=== PATIENT | female | born 1960 | race African-American/Black ===

== ENCOUNTER 2017-08-19 14:23 | Inpatient (IN) | payer MEDICAID, OTHER ==
[~2017-08-19] VITALS: Ht 160 cm; Wt 151.5 kg
[2017-08-19] MEDS ORDERED: FLUT1DIS3 IH (14:30)
[2017-08-19] MEDS ORDERED: TRAM50TA3 PO (14:30)
[2017-08-19] MEDS ORDERED: ALBU6.7H IH (14:30)
[2017-08-19] MEDS ORDERED: LISI-604 PO (14:30)
[2017-08-19] MEDS ORDERED: SODIUM CHLORIDE 0.9% 1,000 ML IV ONE (15:42)
[2017-08-19] MEDS ORDERED: ALBUTEROL (0.083%) 2.5MG/3ML NEB HHN STA (15:42)
[2017-08-19] MEDS ORDERED: KETOROLAC 30MG/ML VIAL IV STA (15:42)
[2017-08-19] MEDS ORDERED: IPRATROPIUM BROMIDE (0.02%) 0.5MG/2.5ML NEB HHN STA (15:42)
[2017-08-19] MEDS ORDERED: METHYLPREDNISOLONE SOD SUCC 125 MG/2 ML VIAL IV STA (15:42)
[2017-08-19 16:34] LABS: BASOPHILS % 0.7 % (0.0-2.0); EOSINOPHILS % 0.9 % (0.0-5.0); HEMATOCRIT. 35.3 % (36.0-48.0); LYMPHOCYTES % 20.5 % (20.0-50.0); MEAN CORPUSCULAR HEMOGLOBIN 22.7 pg (28.0-32.0); MEAN CORPUSCULAR VOLUME 72.9 fL (81.0-99.0); MEAN PLATELET VOLUME 9.5 fl (7.4-10.4); MONOCYTES % 5.5 % (2.0-8.0); NEUTROPHILS % 72.4 % (40.0-76.0); PLATELET 259 x1000/uL (130-400); RED BLOOD CELL COUNT 4.85 mill/uL (4.2-5.4); RED CELL DISTRIBUTION WIDTH 18.2 % (11.6-14.6)
[2017-08-19 16:48] LABS: CARBON DIOXIDE 33 mEq/L (21-32); CHLORIDE 105 mEq/L (98-107); TROPONIN I < 0.02 ng/mL (0.00-0.04)
[2017-08-19] MEDS ORDERED: CLONIDINE 0.2MG TABLET PO ONE (18:15)
[2017-08-19] MEDS ORDERED: FUROSEMIDE 40MG/4ML VIAL IVP ONE (19:00)
[2017-08-19] MEDS ORDERED: DOCUSATE SODIUM 100MG CAPSULE PO PRN (19:15)
[2017-08-19] MEDS ORDERED: ENOXAPARIN 40MG/0.4ML SYR SUBCUT SCH (19:15)
[2017-08-19] MEDS ORDERED: MAGNESIUM/ALUMINUM HYDROXIDE/SIMETHICONE 30ML UDC PO PRN (19:15)
[2017-08-19] MEDS ORDERED: ONDANSETRON HCL 4MG/2ML VIAL IV PRN (19:15)
[2017-08-19] MEDS ORDERED: ACETAMINOPHEN 325MG TABLET PO PRN (19:15)
[2017-08-19] MEDS ORDERED: HYDRALAZINE HCL 10MG TABLET PO NR (21:00)
[2017-08-19 23:12] LABS: CARBON DIOXIDE 31 mEq/L (21-32); CHLORIDE 103 mEq/L (98-107); CREATINE KINASE 75 IU/L (26-192); TROPONIN I < 0.02 ng/mL (0.00-0.04)
[2017-08-19 23:13] LABS: CREATINE KINASE MB FRACTION 1.4 ng/mL (0.5-3.6)
[2017-08-19 23:55] VITALS: BP 160/65
[2017-08-20] VITALS (8 sets, daily range): BP systolic 128–198; BP diastolic 65–96
[2017-08-20] MEDS: METHYLPREDNISOLONE SOD SUCC 40 MG/ML VIAL IV SCH ×3 (00:17→21:30)
[2017-08-20] MEDS: CLONIDINE 0.1MG TABLET PO PRN ×2 (00:20→06:46)
[2017-08-20 05:51] LABS: CLARITY URINE CLEAR (CLEAR); COLOR URINE YELLOW (YELLOW); GLUCOSE URINE NEGATIVE (NEGATIVE); KETONES URINE NEGATIVE (NEGATIVE); LEUKOCYTE ESTERASE URINE NEGATIVE (NEGATIVE); NITRITE URINE NEGATIVE (NEGATIVE); OCCULT BLOOD URINE NEGATIVE (NEGATIVE); PROTEIN URINE NEGATIVE (NEGATIVE); SPECIFIC GRAVITY URINE 1.017 (1.005-1.030); UROBILINOGEN URINE 0.2 E.U./dL (0.2-1.0)
[2017-08-20 06:05] LABS: *AMPHETAMINES SCREEN URINE NEGATIVE (NEGATIVE); *BARBITURATES SCREEN URINE NEGATIVE (NEGATIVE); *BENZODIAZEPINES SCREEN URINE NEGATIVE (NEGATIVE); *COCAINE SCREEN URINE NEGATIVE (NEGATIVE); CANNABINOID URINE SCREEN NEGATIVE (NEGATIVE); METHADONE URINE SCREEN NEGATIVE (NEGATIVE); OPIATES URINE SCREEN NEGATIVE (NEGATIVE); PHENCYCLIDINE URINE SCREEN NEGATIVE (NEGATIVE)
[2017-08-20] MEDS: FUROSEMIDE 40MG/4ML VIAL IV SCH (10:08)
[2017-08-20] MEDS: LISINOPRIL 20MG TABLET PO SCH ×2 (10:08→22:03)
[2017-08-20] MEDS: ENOXAPARIN 40MG/0.4ML SYR SUBCUT SCH ×2 (10:08→22:07)
[2017-08-20 11:25] LABS: BASOPHILS % 0.1 % (0.0-2.0); HEMOGLOBIN. 11.7 g/dL (12.0-16.0); LYMPHOCYTES % 9.4 % (20.0-50.0); MEAN CORPUSCULAR HEMOGLOBIN 22.8 pg (28.0-32.0); MEAN CORPUSCULAR VOLUME 71.9 fL (81.0-99.0); MEAN PLATELET VOLUME 9.3 fl (7.4-10.4); MONOCYTES % 1.3 % (2.0-8.0); NEUTROPHILS % 89.2 % (40.0-76.0); PLATELET 281 x1000/uL (130-400); RED BLOOD CELL COUNT 5.14 mill/uL (4.2-5.4)
[2017-08-20] MEDS: IPRATROPIUM/ALBUTEROL 0.5-3(2.5)MG/3ML NEB INH PRN (12:40)
[2017-08-20] MEDS: BUDESONIDE 0.5MG/2ML NEB HHN SCH (12:40)
[2017-08-20] MEDS ORDERED: DEXTROSE 50% WATER 50ML SYRINGE IV PRN (16:45)
[2017-08-20] MEDS: BLOOD SUGAR DIAGNOSTIC STRIP TEST SCH ×2 (17:29→21:00)
[2017-08-20] MEDS: ASPIRIN 325MG EC TABLET PO SCH (17:36)
[2017-08-20] MEDS: DILTIAZEM HCL 60MG TABLET PO SCH ×2 (17:36→22:05)
[2017-08-20] MEDS: INSULIN LISPRO 100 UNITS/ML SUBCUT SCH ×2 (17:37→21:00)
[2017-08-21] VITALS: BP 127/73
[2017-08-21] MEDS: BUDESONIDE 0.5MG/2ML NEB HHN SCH ×2 (01:09→08:17)
[2017-08-21 04:00] VITALS: BP 154/82
[2017-08-21 06:48] LABS: BASOPHILS % 0.1 % (0.0-2.0); HEMATOCRIT. 36.1 % (36.0-48.0); HEMOGLOBIN. 11.3 g/dL (12.0-16.0); LYMPHOCYTES % 8.6 % (20.0-50.0); MEAN CORPUSCULAR HEMOGLOBIN 22.4 pg (28.0-32.0); MEAN CORPUSCULAR VOLUME 71.4 fL (81.0-99.0); MEAN PLATELET VOLUME 9.2 fl (7.4-10.4); MONOCYTES % 2.1 % (2.0-8.0); NEUTROPHILS % 89.2 % (40.0-76.0); PLATELET 284 x1000/uL (130-400); RED BLOOD CELL COUNT 5.05 mill/uL (4.2-5.4); RED CELL DISTRIBUTION WIDTH 17.7 % (11.6-14.6)
[2017-08-21 07:04] LABS: CARBON DIOXIDE 32 mEq/L (21-32); CHLORIDE 103 mEq/L (98-107)
[2017-08-21] MEDS: BLOOD SUGAR DIAGNOSTIC STRIP TEST SCH ×4 (07:20→21:20)
[2017-08-21] MEDS: DILTIAZEM HCL 60MG TABLET PO SCH ×3 (07:39→17:26)
[2017-08-21 08:00] VITALS: BP 198/98
[2017-08-21] MEDS: IPRATROPIUM/ALBUTEROL 0.5-3(2.5)MG/3ML NEB INH PRN (08:17)
[2017-08-21] MEDS: INSULIN LISPRO 100 UNITS/ML SUBCUT SCH ×4 (08:42→21:00)
[2017-08-21] MEDS: LISINOPRIL 20MG TABLET PO SCH ×2 (08:43→21:53)
[2017-08-21] MEDS: FUROSEMIDE 40MG/4ML VIAL IV SCH (08:43)
[2017-08-21] MEDS: METHYLPREDNISOLONE SOD SUCC 40 MG/ML VIAL IV SCH (08:43)
[2017-08-21] MEDS: ASPIRIN 325MG EC TABLET PO SCH (08:43)
[2017-08-21] MEDS: ENOXAPARIN 40MG/0.4ML SYR SUBCUT SCH ×2 (08:44→21:53)
[2017-08-21] MEDS ORDERED: DILTIAZEM HCL 5MG/ML 5ML VIAL IV PRN (11:30)
[2017-08-21 12:00] VITALS: BP 150/73
[2017-08-21] MEDS: AMIODARONE HCL 200 MG TABLET PO SCH ×2 (14:49→21:53)
[2017-08-21 16:00] VITALS: BP 154/68
[2017-08-21 19:34] VITALS: BP 125/75
[2017-08-22] VITALS: BP 152/87
[2017-08-22] MEDS: DILTIAZEM HCL 60MG TABLET PO SCH ×2 (00:36→06:05)
[2017-08-22] MEDS: IPRATROPIUM/ALBUTEROL 0.5-3(2.5)MG/3ML NEB INH PRN ×2 (01:57→07:50)
[2017-08-22] MEDS: BUDESONIDE 0.5MG/2ML NEB HHN SCH ×3 (01:57→21:00)
[2017-08-22 04:30] VITALS: BP 151/64
[2017-08-22] MEDS: AMIODARONE HCL 200 MG TABLET PO SCH ×3 (06:05→21:09)
[2017-08-22] MEDS: BLOOD SUGAR DIAGNOSTIC STRIP TEST SCH ×4 (06:05→21:10)
[2017-08-22 06:25] LABS: BASOPHILS % 0.2 % (0.0-2.0); HEMOGLOBIN. 11.5 g/dL (12.0-16.0); LYMPHOCYTES % 10.9 % (20.0-50.0); MEAN CORPUSCULAR HEMOGLOBIN 22.4 pg (28.0-32.0); MEAN CORPUSCULAR VOLUME 72.2 fL (81.0-99.0); MEAN PLATELET VOLUME 9.3 fl (7.4-10.4); NEUTROPHILS % 79.9 % (40.0-76.0); PLATELET 285 x1000/uL (130-400); RED BLOOD CELL COUNT 5.12 mill/uL (4.2-5.4); RED CELL DISTRIBUTION WIDTH 17.8 % (11.6-14.6)
[2017-08-22 07:36] LABS: CARBON DIOXIDE 34 mEq/L (21-32); CHLORIDE 101 mEq/L (98-107)
[2017-08-22] MEDS: INSULIN LISPRO 100 UNITS/ML SUBCUT SCH ×4 (07:50→21:00)
[2017-08-22 07:59] VITALS: BP 172/89
[2017-08-22] MEDS ORDERED: PREDNISONE 20MG TABLET PO SCH (09:00)
[2017-08-22] MEDS: FUROSEMIDE 40MG/4ML VIAL IV SCH (10:41)
[2017-08-22] MEDS: LISINOPRIL 20MG TABLET PO SCH ×2 (10:42→21:09)
[2017-08-22] MEDS: ENOXAPARIN 40MG/0.4ML SYR SUBCUT SCH ×2 (10:43→21:10)
[2017-08-22] MEDS: ASPIRIN 325MG EC TABLET PO SCH (10:44)
[2017-08-22 11:47] VITALS: BP 115/68
[2017-08-22 15:58] VITALS: BP 136/78
[2017-08-22] MEDS: DILTIAZEM HCL 90MG TABLET PO SCH (18:41)
[2017-08-22 20:00] VITALS: BP 121/56
[2017-08-22] MEDS: TRAMADOL 50MG TABLET PO PRN (22:38)
[2017-08-23] VITALS: BP 148/79
[2017-08-23] MEDS: DILTIAZEM HCL 90MG TABLET PO SCH ×2 (00:37→06:34)
[2017-08-23 04:00] VITALS: BP 131/78
[2017-08-23 06:17] LABS: BASOPHILS % 0.2 % (0.0-2.0); EOSINOPHILS % 0.7 % (0.0-5.0); HEMATOCRIT. 37.2 % (36.0-48.0); HEMOGLOBIN. 11.5 g/dL (12.0-16.0); LYMPHOCYTES % 32.7 % (20.0-50.0); MEAN CORPUSCULAR HEMOGLOBIN 22.2 pg (28.0-32.0); MEAN CORPUSCULAR VOLUME 71.7 fL (81.0-99.0); MEAN PLATELET VOLUME 8.9 fl (7.4-10.4); MONOCYTES % 8.6 % (2.0-8.0); NEUTROPHILS % 57.8 % (40.0-76.0); PLATELET 293 x1000/uL (130-400); RED BLOOD CELL COUNT 5.19 mill/uL (4.2-5.4); RED CELL DISTRIBUTION WIDTH 17.6 % (11.6-14.6)
[2017-08-23 06:29] LABS: CARBON DIOXIDE 33 mEq/L (21-32); CHLORIDE 98 mEq/L (98-107)
[2017-08-23] MEDS: AMIODARONE HCL 200 MG TABLET PO SCH ×3 (06:34→22:34)
[2017-08-23] MEDS: BLOOD SUGAR DIAGNOSTIC STRIP TEST SCH ×4 (06:34→21:00)
[2017-08-23] MEDS: INSULIN LISPRO 100 UNITS/ML SUBCUT SCH ×4 (07:50→21:00)
[2017-08-23 08:00] VITALS: BP 133/83
[2017-08-23] MEDS: PREDNISONE 20MG TABLET PO SCH (09:25)
[2017-08-23] MEDS: ASPIRIN 325MG EC TABLET PO SCH (09:25)
[2017-08-23] MEDS: ENOXAPARIN 40MG/0.4ML SYR SUBCUT SCH ×2 (09:26→22:33)
[2017-08-23] MEDS: LISINOPRIL 20MG TABLET PO SCH ×2 (09:26→22:32)
[2017-08-23] MEDS: IPRATROPIUM/ALBUTEROL 0.5-3(2.5)MG/3ML NEB INH PRN (11:34)
[2017-08-23] MEDS: BUDESONIDE 0.5MG/2ML NEB HHN SCH (11:35)
[2017-08-23] MEDS: DILTIAZEM HCL 240MG ER (24HR) PO SCH ×2 (11:52→22:32)
[2017-08-23 12:00] VITALS: BP 133/85
[2017-08-23 16:00] VITALS: BP 135/71
[2017-08-23 20:00] VITALS: BP 112/57
[2017-08-24] VITALS: BP 139/55
[2017-08-24 04:00] VITALS: BP 143/73
[2017-08-24] MEDS: AMIODARONE HCL 200 MG TABLET PO SCH (06:34)
[2017-08-24] MEDS: BLOOD SUGAR DIAGNOSTIC STRIP TEST SCH ×3 (06:34→18:13)
[2017-08-24] MEDS: INSULIN LISPRO 100 UNITS/ML SUBCUT SCH ×3 (07:50→18:13)
[2017-08-24] MEDS: ASPIRIN 325MG EC TABLET PO SCH (09:06)
[2017-08-24] MEDS: PREDNISONE 20MG TABLET PO SCH (09:06)
[2017-08-24] MEDS: DILTIAZEM HCL 240MG ER (24HR) PO SCH (09:06)
[2017-08-24] MEDS: TRAMADOL 50MG TABLET PO PRN (09:07)
[2017-08-24] MEDS: ENOXAPARIN 40MG/0.4ML SYR SUBCUT SCH (09:08)
[2017-08-24] MEDS: LISINOPRIL 20MG TABLET PO SCH (09:08)
[2017-08-24] MEDS ORDERED: HYDROCHLOROTHIAZIDE 25MG TABLET PO SCH (10:00)
[2017-08-24] MEDS ORDERED: AMIODARONE HCL 200 MG TABLET PO SCH ×2 (10:00→17:50)
[2017-08-24 18:37] VITALS: BP 121/87
== END 2017-08-24 19:30 | disposition home or self-care (01) | DRG 133 ==
LOC: ER 14:32 → 6WST 19:02 → ENRESERV 19:37
PROVIDERS: ADMIT Internal Medicine; ATTEND Internal Medicine
DX: J96.00 Acute respiratory failure, unspecified whether with hypoxia or hypercapnia (principal); I50.33 Acute on chronic diastolic (congestive) heart failure; I27.20 Pulmonary hypertension, unspecified; J45.901 Unspecified asthma with (acute) exacerbation; E11.65 Type 2 diabetes mellitus with hyperglycemia; E66.2 Morbid (severe) obesity with alveolar hypoventilation; Z68.43 Body mass index [BMI] 50.0-59.9, adult; I11.0 Hypertensive heart disease with heart failure; M06.9 Rheumatoid arthritis, unspecified; G47.30 Sleep apnea, unspecified; I48.0 Paroxysmal atrial fibrillation; T38.0X5A Adverse effect of glucocorticoids and synthetic analogues, initial encounter; Z79.899 Other long term (current) drug therapy; Z82.3 Family history of stroke; Z83.3 Family history of diabetes mellitus
CPT/HCPCS: 36415; 71010; 80048; 80053; 80061; 80305; 81003; 82550; 82553; 82962; 83605; 83690; 83735; 83880; 84443; 84484; 85025; 85379; 87040; 93005; 93306; 93970; 94640; 94660; 97110; 97116; 97162; 97530; 99285; J1650; J1815; J1885; J1940; J2920; J2930; J7030; J7512; J7611; J7620; J7626